=== PATIENT | female | born 1965 | race American Indian/Alaskan Native ===

== ENCOUNTER 2019-04-03 08:00 | Observation (INO) | payer OTHER ==
--- NOTE | 2019-03-28 12:00 | Anesthesia Consultation ---
Anesthesia Consult and Med Hx - Airway Anesthetic Teeth Evaluation: Good ROM Head & Neck: Adequate Mental/Hyoid Distance: Adequate Mallampati Class: Class II Intubation Access Assessment: Good - Pulmonary Exam CTA: Yes - Cardiac Exam Cardiac Exam: RRR - Pre-Operative Health Status ASA Pre-Surgery Classification: ASA2 Proposed Anesthetic Plan: General Nerve Block: PEC Block Bilateral - Pulmonary Hx Smoking: No - Cardiovascular System Hx Hypertension: Yes (2008) Hx Cardia Arrhythmia: Yes (Hx of cardiac arrythmia, EKG normal f/u with cardilogy yearly no medication) - Central Nervous System Hx Psychiatric Problems: No - Other Systems Hx Alcohol Use: No Hx Cancer: Yes - Additional Comments Anesthesia Medical History Comments: Pt with HTN , hx of arrythmia but not issues , f/u with cardiology yearly but not on any medications, ekg shows no arrythmias
[~2019-04-03 08:00] MED LIST: ANCEF IV ONE; BACITRACIN IR ONE; GENTAMICIN IV ONE; LACTATED RINGERS 1,000 ML IV SCH; NEURONTIN PO NR; SUBLIMAZE IV SCH; TRANSDERM-SCOP TD NR; VERSED IV NR
[2019-04-03] MEDS ORDERED: ANCEF ONE ×2 (10:17→19:11)
[2019-04-03] MEDS ORDERED: GENTAMICIN ONE (10:17)
[2019-04-03] MEDS ORDERED: BACITRACIN ONE (10:17)
[2019-04-03] MEDS ORDERED: NACL P/F VIAL (10 ML) 20 ML ONE (10:18)
[2019-04-03] MEDS ORDERED: METHYLENE BLUE ONE ×2 (10:19→15:03)
[2019-04-03] MEDS ORDERED: MARCAINE 0.25% INFILTRATI ONE (10:47)
[2019-04-03] MEDS ORDERED: DECADRON ONE ×2 (10:47→12:52)
[2019-04-03] MEDS ORDERED: DILAUDID IV PRN (10:55)
--- NOTE | 2019-04-03 10:55 | Anesthesia Day of Surgery ---
Anesthesia Day of Surgery - Day of Surgery Patient Examined: Yes Patient H&P Reviewed: Yes Patient is NPO: Yes
[2019-04-03] MEDS ORDERED: ANCEF/STERILE WATER 2 GM/20 ML IV NR (11:00)
[2019-04-03] MEDS: VERSED IV NR ×2 (11:13→11:21)
[2019-04-03] MEDS ORDERED: ZEMURON IV ONE (12:20)
[2019-04-03] MEDS ORDERED: DIPRIVAN 10 MG/ML IV ONE (12:20)
[2019-04-03] MEDS ORDERED: ZOFRAN ONE (12:20)
[2019-04-03] MEDS ORDERED: SUBLIMAZE ONE ×3 (12:20→17:26)
[2019-04-03] MEDS ORDERED: QUELICIN ONE (12:20)
[2019-04-03] MEDS ORDERED: XYLOCAINE MPF 2% ONE (12:20)
[2019-04-03] MEDS ORDERED: NACL P/F VIAL (10 ML) INFILTRATI ONE (13:12)
[2019-04-03] MEDS ORDERED: METHYLENE BLUE IRRIGATION ONE (13:12)
[2019-04-03] MEDS ORDERED: WATER FOR IRRIG STERILE IR ONE (14:12)
[2019-04-03] MEDS ORDERED: NACL 0.9% IR ONE (14:26)
[2019-04-03] MEDS ORDERED: REGLAN PO PRN (18:28)
[2019-04-03] MEDS ORDERED: TYLENOL PO PRN (18:28)
[2019-04-03] MEDS ORDERED: DILAUDID PO PRN (18:28)
[2019-04-03] MEDS ORDERED: PERCOCET 5/325 PO PRN (18:28)
[2019-04-03] MEDS ORDERED: SODIUM CHLORIDE FLUSH SYRINGE 10 ML IV PRN (18:28)
[2019-04-03] MEDS ORDERED: BENADRYL PO PRN (18:28)
[2019-04-03] MEDS ORDERED: ZOFRAN IV PRN (18:28)
--- NOTE | 2019-04-03 18:28 | Short Stay Summary ---
Short Stay Documentation Date of service: 04/03/19 - History H&P: obtained from office - Allergies and Medications Current Medications: Allergies No Known Allergies Allergy (Verified 03/27/19 19:13) Home Medications Medication Instructions Recorded Confirmed Last Taken Type Triamter/Hctz 37.5-25 mg 1 tab PO QDAY 03/27/19 04/03/19 04/02/19 21:00 History [Maxzide-25] oxyCODONE [roxiCODONE] 5 mg PO Q6HR PRN 03/27/19 03/27/19 Unknown History Active Medications Cefazolin Sodium (Ancef/Sterile Water 2 Gm/20 Ml) 2 gm IV PREOP NR Stop: 04/03/19 20:00 Celecoxib (Celebrex) 200 mg PO PREOP NR Stop: 04/03/19 23:00 Last Admin: 04/03/19 10:31 Dose: 200 mg Documented by: Fentanyl (Sublimaze) 100 mcg IV ONCE FABY Stop: 04/03/19 23:00 Last Admin: 04/03/19 11:13 Dose: 100 mcg Documented by: Gabapentin (Neurontin) 300 mg PO PREOP NR Stop: 04/03/19 23:00 Last Admin: 04/03/19 10:32 Dose: 300 mg Documented by: Hydromorphone HCl (Dilaudid) 0.5 mg IV Q10MIN PRN PRN Reason: Pain , Severe (7-10) Stop: 04/03/19 20:00 Lactated Ringer's (Lactated Ringers) 1,000 mls @ 75 mls/hr IV DIRECT FABY Last Admin: 04/03/19 10:32 Dose: 75 mls/hr Documented by: Midazolam HCl (Versed) 2 mg IV PREOP NR Stop: 04/03/19 23:59 Last Admin: 04/03/19 11:21 Dose: 2 mg Documented by: Scopolamine (Transderm-Scop) 1 each TD PREOP NR Stop: 04/03/19 23:00 Last Admin: 04/03/19 10:32 Dose: 1 each Documented by: - Brief post op/procedure progress note Date of procedure: 04/03/19 Pre-op diagnosis: Left breast cancer of the lower inner quadrant Post-op diagnosis: same Procedure: Right total mastectomy, left total mastectomy with SLNB followed by completion left ALND Anesthesia: GETA Findings: Right total mastectomy; left total mastectomy with clip present; SLNB positive for malignancy and proceeded with ALND Surgeon: OSMAR MATOS Estimated blood loss: other (250) Pathology: list (bilateral mastectomy; left SLND, left ALND) Specimen disposition: to lab Condition: stable - Disposition Condition at discharge: Good Disposition: DC/TX-02 SHRT-TRM GEN HOSP IP Short Stay Discharge Plan Activity: other (no heavy lifting) Diet: regular Wound: keep clean and dry Follow up with: CATHERINE WALDRON MD [Primary Care Provider] - 7 Days OSMAR MATOS MD [Staff Physician] - 7 Days
[2019-04-03] MEDS ORDERED: MORPHINE IV PRN (18:30)
[2019-04-03] MEDS ORDERED: LACTATED RINGERS 1,000 ML IV SCH (19:00)
[2019-04-03] MEDS ORDERED: DILAUDID ONE (19:20)
[2019-04-03] MEDS: COLACE PO SCH (22:41)
--- NOTE | 2019-04-03 23:30 | Operative Report ---
Operative Report Operative Report: Operative Report: Date of Service: April 03, 2019 Preoperative diagnosis: Left breast cancer of the lower inner quadrant Postoperative diagnosis: Same Procedure: Left total mastectomy with sentinel lymph node biopsy followed by ALND and right total mastectomy and removal of bilateral implants Surgeon: Lian Perez M.D. Anesthesia: Gen. Findings: Left breast clip present within left total mastectomy. 1 sentinel lymph node identified and positive for malignancy on frozen section of pathology and proceeded with left axillary lymph node dissection Complications: None Drains: 2 15/19 [place] WES drains bilaterally-placed by plastic surgery Estimated blood loss: 200 cc Disposition: PACU in good condition Indications for operative procedure: This is a 53-year-old lady with stage II left breast cancer of the lower inner quadrant, ER positive. She completed neoadjuvant chemotherapy and recommendations were to proceed with a left mastectomy given location of tumor with SLN staging. She wished to proceed with a prophylactic right mastectomy and removal of bilateral implants and placement of bilateral tissue expanders in conjunction with plastic surgery. She wished to proceed with the above procedure. Procedure in detail: The patient was taken to the operating room and was placed supine. Gen. anesthesia was administered. The left nipple was injected with radioisotope and 1 cc of methylene blue. Bilateral chest and axillas were prepped and draped in the normal sterile operative fashion. Timeout was performed. Typical mastectomy incision markings were made. Attention was taken toward the right breast first. First began raising of the superior flap to the level of the clavicle superiorly and posteriorly to the pectoralis muscle. Followed by raising of the medial flap to the level of the sternum and posteriorly to the pectoralis muscle. Followed by raising of the lateral flap to the level of the latissimus dorsi muscle and taken down posteriorly. Followed by raising of the inferior flap to the level of the inframammary fold taken posterior to the pectoralis muscle. The mastectomy/breast was removed from the pectoralis muscle without incident. Upon breast removal from the pectoralis muslce, the submuscular implant was encountered and was removed. Significant scar tissue was noted throughout the mastectomy from her prior surgeries. The specimen was appropriately marked and sent to pathology. Hemostasis was obtained. The port was noted and unharmed. Attention was taken towards the left breast. A gamma probe was inserted into the axilla to identify the sentinel lymph node location with uptake noted. A skin incision was made with a 10 blade knife and dissection taken down to the subcutaneous tissues. First began raising of the superior flap to the level of the clavicle superiorly and posteriorly to the pectoralis muscle. Followed by raising of the medial flap to the level of the sternum and posteriorly to the pectoralis muscle. Followed by raising of the lateral flap to the level of the latissimus dorsi muscle and taken down posteriorly. The gamma probe was inserted into the axilla, the axillary fascia was opened and 1 sentinel lymph node was identified with the gamma probe that was dissected free and sent to pathology. Patient with positive axillary lymph node prior to chemotherapy. All remaining counts were less than 10% of the highest SLN. Lymph node was sent to pathology with findings positive for malignancy noted on frozen section. Then proceeded with raising of the inferior flap to the level of the inframammary fold taken posterior to the pectoralis muscle. The mastectomy/breast was removed from the pectoralis muscle without incident. The specimen was appropriately marked and sent to radiology with findings of breast clip present and sent to pathology. Upon breast removal from the pectoralis muslce, the submuscular implant was encountered and was removed. Significant scar tissue was noted throughout the mastectomy from her prior surgeries. Significant scarring was noted around the NAC bilaerally. From patient's prior reduction mammoplasty and augmentation, less amount of breast tissue was noted along the inframammary fold bilaterally. Attention was then taken towards the left axilla. First began opening of the axillary fascia further. The lattismus dorsi muscle was identified and followed superiorly. Then proceeded with identification of the axillary vein followed by identification of the thoracodorsal bundle and long thoracic nerve. Axillary lymph nodes were then removed from the above boundaries with the aid of the bovie cautery in a sweeping-like motion and then sent to pathology. Axillary lymph nodes from level I and II were removed. Both nerves were identified and unharmed. Hemostasis was noted. The chest wall was irrigated and suctioned. Hemostasis was obtained. Plastic surgery then proceeded with placement of bilateral tissue expanders.
--- NOTE | 2019-04-04 07:39 | Progress Note ---
Assessment and Plan This is a 53 year old lady with left breast cancer, IDCA c T2N1M0 ER positive. POD#1 left MRM, right total mastectomy and bilateral implant removal and placement of bilateral tissue expanders. 1. No acute events overnight. 2. Pain in good control. 3. Bilateral chest incisions healing well, no hematoma, PICCO dressing intact. 4. OOB to hallway. 5. WES drain education. 6. D/D planning for today. Subjective Date of service: 04/04/19 Principal diagnosis: Left breast cancer of the lower inner quadrant Interval history: POD#1 right total mastectomy, left MRM and bilateral implant removal and placement of bilateral tissue expanders. Objective - Constitutional Vitals: Vital Signs - 12hr 04/03/19 04/03/19 04/03/19 19:45 20:00 20:15 Temperature 97.5 F L Pulse Rate 91 H 81 81 Respiratory 10 L 12 12 Rate Blood Pressure 132/92 133/98 136/91 Blood Pressure [Right] O2 Sat by Pulse 98 98 98 Oximetry 04/03/19 04/03/19 04/04/19 20:30 23:10 00:20 Temperature 97.8 F 98.0 F Pulse Rate 77 64 Respiratory 20 20 18 Rate Blood Pressure 118/69 Blood Pressure 145/88 [Right] O2 Sat by Pulse 100 99 Oximetry 04/04/19 04/04/19 04:15 05:33 Temperature 98.0 F Pulse Rate 65 Respiratory 18 20 Rate Blood Pressure 112/62 Blood Pressure [Right] O2 Sat by Pulse 97 Oximetry General appearance: Present: no acute distress - EENT Eyes: PERRL, EOM intact ENT: hearing intact, clear oral mucosa, dentition normal Ears: bilateral: normal - Neck Neck: supple, normal ROM - Respiratory Respiratory effort: normal - Breasts Breasts: other (bilateral PICCO dressings intact; no hematoma; WES drains to bulb suction) - Cardiovascular Rhythm: regular Extremities: no ischemia, No edema, normal temperature, normal color, Full ROM - Gastrointestinal General gastrointestinal: Present: soft, non-tender, non-distended Rectal Exam: deferred - Genitourinary Female genitourinary: deferred - Integumentary Integumentary: clear, warm, dry - Musculoskeletal Musculoskeletal: strength equal bilaterally - Neurologic Neurologic: CNII-XII intact, moves all extremities - Psychiatric Psychiatric: appropriate mood/affect, intact judgment & insight, memory intact, cooperative Medications & Allergies - Medications Allergies/Adverse Reactions: Allergies No Known Allergies Allergy (Verified 03/27/19 19:13) Home Medications: Home Medications Medication Instructions Recorded Confirmed Last Taken Type Triamter/Hctz 37.5-25 mg 1 tab PO QDAY 03/27/19 04/03/19 04/02/19 21:00 History [Maxzide-25] oxyCODONE [roxiCODONE] 5 mg PO Q6HR PRN 03/27/19 03/27/19 Unknown History Active Medications: Generic Name Dose Route Start Last Admin Trade Name Freq PRN Reason Stop Dose Admin Acetaminophen 650 mg 04/03/19 18:28 Tylenol PO Q6H PRN Pain MILD(1-3)/Fever >100.5/YORK Diphenhydramine HCl 25 mg 04/03/19 18:28 Benadryl PO Q8H PRN Itching Docusate Sodium 100 mg 04/03/19 22:00 04/03/19 22:41 Colace PO Not Given BID FABY Hydromorphone HCl 2 mg 04/03/19 18:28 Dilaudid PO Q6H PRN Pain , Severe (7-10) Lactated Ringer's 1,000 mls @ 75 mls/hr 04/03/19 06:32 04/03/19 10:32 Lactated Ringers IV 75 mls/hr DIRECT FABY Administration Lactated Ringer's 1,000 mls @ 125 mls/hr 04/03/19 19:00 04/03/19 21:29 Lactated Ringers IV 125 mls/hr DIRECT FABY Administration Metoclopramide HCl 10 mg 04/03/19 18:28 Reglan PO Q6H PRN Nausea And Vomiting Morphine Sulfate 2 mg 04/03/19 18:30 04/03/19 23:10 Morphine IV 2 mg Q4H PRN Administration Pain, Moderate (4-6) Ondansetron HCl 4 mg 04/03/19 18:28 Zofran IV Q8H PRN N/V unrelieved by Reglan Oxycodone/Acetaminophen 1 tab 04/03/19 18:28 04/04/19 05:33 Percocet 5/325 PO 1 tab Q6H PRN Administration Pain, Moderate (4-6) Sodium Chloride 10 ml 04/03/19 18:28 Sodium Chloride Flush Syringe 10 Ml IV PRN PRN LINE FLUSH
--- NOTE | 2019-04-04 09:18 | XRay Report ---
Operative specimen mammogram: A single image demonstrates a large piece of soft tissue that includes a biopsy marker.
[2019-04-04] MEDS: COLACE PO SCH (09:55)
[2019-04-04 10:30] VITALS: BP 124/72
--- NOTE | 2019-04-04 14:06 | Operative Report ---
PREOPERATIVE DIAGNOSIS: left breast cancer POSTOPERATIVE DIAGNOSIS: left breast cancer PROCEDURE: 1. Bilateral breast reconstruction with tissue expanders. 2. Bilateral breast reconstruction using the acellular dermal matrix, FlexHD. 3. Removal of bilateral intact silicone implants. 4. Application of ASHLEE negative pressure wound VAC device to bilateral breasts. SURGEON: Felix Lama MD FREEZER ASSISTANT: None. ANESTHESIA: General. OPERATIVE INDICATIONS: This is a 53-year-old female with left-sided breast cancer, who was undergoing a bilateral mastectomy and desired reconstruction. Her history was noted for multiple breast surgeries including augmentation, mastopexy, breast reduction and currently had a mariscal pattern incision with wide pour scars, very tight breasts and almost close to symmastia as well. We discussed with the patient that we would likely need to remove the implants and then we placed some tissue expanders, re-stretch out the skin in order to place silicone implants again in the future. Risks and benefits of surgery were discussed with the patient, she agreed. OPERATIVE DETAILS: After informed consent obtained, the patient was brought to the operating room and placed supine on the operative table. Preoperative antibiotics and general anesthesia were administered. The patient was prepped and draped in usual sterile fashion. Timeout was called verifying inpatient operation being performed. Dr. Perez began her portion of the operation, which will be dictated separately. I came into the room when she was completing the right-sided mastectomy. I scrubbed in. We removed the intact breast implant, which was in the submuscular plane but very little of it was submuscular, most of it was subglandular and implant was displaced laterally. The capsule was thin and normal and Dr. Perez had to resect a small portion of the anterior capsule with the specimen. I went ahead and decided to leave the implant in the pocket, but I created some additional dissection subpectorally, superiorly and medially to try to push the pocket a little bit more medial. Once that was done, we irrigated copiously and achieved hemostasis. We then prepared our implants. I opened up a [place] Artbttna ultra high profile 535 mL textured implant with serial #[id number] and we placed that into the subpectoral pocket. All the air was removed and 50 mL of methylene blue tinted saline was placed in there. We then took a piece of 11 x 20 cm FlexHD pliable-shaped perforated mesh and secured that to the inframammary fold and then secured it to the pectoralis major muscle to provide total implant coverage. We then placed a 19-Citizen [place] and 15-Citizen [place] round [place] drain. Of note, the patient was very tight to close. Dr. Perez had to remove more skin and anticipate around the nipple areola complex and it was difficult to close her. We explored her together with deeper layer of 2-0 Vicryl sutures to take the tension off the skin closure and then closed with 3-0 Monocryl and then a 3-0 Monocryl V-Loc running subcuticular. We then applied Dermabond and a ASHLEE negative pressure wound VAC device to reinforce the incision postoperatively. When she was done with the left side, I performed the same procedure on the left. She did have performed an axillary dissection on that side, so we paid particular attention to hemostasis. After everything was irrigated again, we created a little bit larger subpectoral pocket and after we removed the intact silicone implant, which had no issues, the capsule had no issues, a small portion was resected anteriorly. Again, we extended the subpectoral pocket and then placed a [place] Artoura ultra high profile 535 mL regulatory consultant into that pocket and sutured in place with the suture tabs. The serial number on it was #[id number] and then we used a piece of FlexHD pliable 16 x 20 cm, cut it to the appropriate size, and used that as our lower sling, securing it to the inframammary fold and the pectoralis major muscle with 2-0 PDS suture. We then placed [id number] and 19-Citizen [place] drains, achieved hemostasis, irrigated out the pocket and closed with 2-0 Vicryl deep and then 3-0 Monocryl in the dermal layer and 3-0 Monocryl running subcuticular barbed suture. We applied Dermabond and ASHLEE negative pressure wound VAC device. We placed the patient in a support binder, awakened from general anesthesia, transferred to PACU in stable condition. ESTIMATED BLOOD LOSS: Less than 50 mL. COMPLICATIONS: None. SPECIMENS: Bilateral intact silicone breast implants. JOB# [id number] ANTONIA/VIVIENNE SIERRA
== END 2019-04-04 10:35 | disposition home or self-care (01) ==
LOC: INTOOBSV 09:52 → 3A 09:52 → EDSTATUS 14:30 → OB 19:49
PROVIDERS: ADMIT Surgery; ATTEND Surgery
DX: C50.312 Malignant neoplasm of lower-inner quadrant of left female breast (principal); F32.9 Major depressive disorder, single episode, unspecified; D64.9 Anemia, unspecified; Z98.890 Other specified postprocedural states
CPT/HCPCS: 19303; 19357; 38525; 38792; 64450; 76098; 78800; 88307; 88331; 88333; 88342; 93005; 93010; 96374; 96375; A9541; C1789; G0378; G0379; J0690; J1100; J1170; J1580; J2250; J2270; J2405; J2704; J3010; J7120; Q4128; Q9968; 88309; 88341; 88368; 96361; J0330

== ENCOUNTER 2021-01-15 10:17 | Day surgery (SDC) | payer OTHER ==
[~2021-01-15 10:17] MED LIST changes: -ANCEF IV ONE; -BACITRACIN IR ONE; -GENTAMICIN IV ONE; +MIDAZOLAM 2 MG/2 ML INJ IV NR; -NEURONTIN PO NR; -SUBLIMAZE IV SCH; -TRANSDERM-SCOP TD NR; -VERSED IV NR; +ceFAZolin/Water 2 GM/20 ML 2 GM/20 ML SYRINGE IV NR
[2021-01-15] MEDS ORDERED: propofoL 200 MG/20 ML VIAL IV ONE ×3 (10:21→11:53)
[2021-01-15] MEDS ORDERED: ceFAZolin/Water 2 GM/20 ML 2 GM/20 ML SYRINGE IV ONE (10:25)
--- NOTE | 2021-01-15 10:46 | Operative Report ---
Operative Report Operative Report: Operative Report: Date of Service: January 15, 2021 Properative diagnosis: Right port with central venous access not indicated, personal history of left breast cancer Postoperative diagnosis: Same Procedure: Right port removal Surgeon: Lian Perez MD Anesthesia: Local MAC Findings: Removal of right port in its entirety Complications: None Drain: None Disposition: PACU in good condition Indications for operative procedure: This is a 55-year-old lady with a personal history of left breast cancer. Patient has completed neoadjuvant chemotherapy and central venous access no longer indicated; status post bilateral mastectomy. Patient wished to proceed with port removal. Procedure in detail: Patient was taken to the operating procedure room. She was laid supine. Local MAC anesthesia was administered. The port was identified of the right chest. The right chest was prepped and draped in the normal sterile operative fashion. The skin was anesthetized with 1% lidocaine mix with quarter percent Marcaine. The prior port incision was opened with a 15 blade knife and taken down to the subcutaneous tissues. The port was encountered. The catheter was encountered and was appropriately dissected free and removed in its entirety-significant scarring present. Then proceed with port removal with dissection of scar tissue around the port-significant scarring present. The port was removed in its entirety without any complications. Hemostasis was obtained. The subcutanoeus tisses were brought together and closed with interrupted 3-0 Vicryl followed by closing of the skin with a running 4-0 Monocryl. She tolerated the procedure very well and was transferred to PACU in good condition.
--- NOTE | 2021-01-15 10:48 | Short Stay Summary ---
Short Stay Documentation Date of service: 01/15/21 - History H&P: obtained from office - Allergies and Medications Current Medications: Allergies egg Adverse Reaction (Verified 01/15/21 09:46) Nausea Home Medications Medication Instructions Recorded Confirmed Last Taken Type Duloxetine HCl [Cymbalta] 30 mg PO DAILY 12/08/20 01/15/21 01/14/21 09:00 History Exemestane [Aromasin] 25 mg PO QDAY 12/08/20 01/15/21 01/14/21 09:00 History Triamterene/Hydrochlorothiazid 1 each PO DAILY 12/08/20 01/15/21 01/14/21 09:00 History [Dyazide 37.5-25 Capsule] traZODone [Desyrel] 50 mg PO QHS 12/08/20 01/15/21 01/13/21 20:00 History Active Medications Lactated Ringer's (Lactated Ringers) 1,000 mls @ 100 mls/hr IV DIRECT FABY Stop: 01/15/21 23:59 Midazolam HCl (Midazolam 2 Mg/2 Ml Inj) 2 mg IV PREOP NR Stop: 01/15/21 23:00 - Brief post op/procedure progress note Date of procedure: 01/15/21 Pre-op diagnosis: Central venous access not indicated, personal history of left breast cancer Post-op diagnosis: same Procedure: Right port removal Anesthesia: MAC Findings: Right port removal in its entirety Surgeon: OSMAR MATOS Estimated blood loss: minimal Pathology: list Specimen disposition: to lab Condition: stable - Disposition Condition at discharge: Good Disposition: DC-01 TO HOME OR SELFCARE Short Stay Discharge Plan Activity: other (no heavy lifting) Diet: regular Wound: keep clean and dry (remove dressing in 24 hours; may shower in 48 hours, no baths; apply bacitracin to incision twice daily ) Follow up with: OSMAR MATOS MD [Staff Physician] - 7 Days
[2021-01-15] MEDS ORDERED: LIDOCAINE PF 100 MG/5 ML (CARDIAC SYRINGE) IV ONE (10:51)
[2021-01-15] MEDS ORDERED: BUPIVACAINE/PF (0.25%) 2.5 MG/ML 30 ML VIAL INFILTRATI ONE ×2 (10:52→11:26)
[2021-01-15] MEDS ORDERED: LIDOCAINE (1%) 10 MG/1 ML VIAL 20 ML MDV ONE (10:52)
[2021-01-15] MEDS ORDERED: ceFAZolin/STERILE WATER 2 GM/20 ML SYRINGE IV NR (11:00)
[2021-01-15] MEDS ORDERED: ONDANSETRON 4 MG/2 ML INJ ONE (11:00)
[2021-01-15] MEDS ORDERED: ONDANSETRON 4 MG/2 ML INJ IV PRN (11:05)
[2021-01-15] MEDS ORDERED: HYDROcodone/ACETAMINOPHEN 5-325 MG TAB PO PRN (11:05)
[2021-01-15] MEDS ORDERED: fentaNYL 100 MCG/2 ML INJ IV PRN (11:05)
--- NOTE | 2021-01-15 11:05 | Anesthesia Consultation ---
Anesthesia Consult and Med Hx Date of service: 01/15/21 - Airway Anesthetic Teeth Evaluation: Good ROM Head & Neck: Adequate Mental/Hyoid Distance: Adequate Mallampati Class: Class III Intubation Access Assessment: Possibly Difficult - Pre-Operative Health Status ASA Pre-Surgery Classification: ASA3 Proposed Anesthetic Plan: MAC - Pulmonary Hx Smoking: No Hx Respiratory Symptoms: No Hx Pneumonia: No (COVID+ 2/4 w/ fatigue and loss of taste. No resp symptoms. Now resolved.) - Cardiovascular System Hx Hypertension: Yes Hx Heart Attack/AMI: No Hx Angina: Yes (had chest pain 2 wks ago w/ neg stress test) Hx Percutaneous Transluminal Coronary Angioplasty (PTCA): No - Central Nervous System Hx Neuromuscular Disorder: No (peripheral neuropathy) CVA: No - Endocrine Hx Renal Disease: No Hx Liver Disease: No Hx Insulin Dependent Diabetes: No Hx Non-Insulin Dependent Diabetes: No Hx Thyroid Disease: No - Other Systems Hx Cancer: Yes (hx breast ca) Hx Obesity: Yes (BMI 31)
--- NOTE | 2021-01-15 11:05 | Anesthesia Day of Surgery ---
Anesthesia Day of Surgery - Day of Surgery Patient Examined: Yes Patient H&P Reviewed: Yes Patient is NPO: Yes
[2021-01-15] MEDS ORDERED: LIDOCAINE (1%) 10 MG/1 ML VIAL 20 ML MDV INFILTRATI ONE (11:26)
[2021-01-15] MEDS ORDERED: SODIUM CHLORIDE 0.9% IRR 1,500 ML BOTTLE IR ONE (11:26)
[2021-01-15] MEDS ORDERED: BACITRACIN ZINC OINT 28.4 GM TP ONE ×2 (11:52→11:59)
[2021-01-15] MEDS ORDERED: fentaNYL 100 MCG/2 ML INJ ONE (12:13)
[2021-01-15] MEDS ORDERED: hydrALAZINE 20 MG/1 ML INJ IV PRN (12:49)
--- NOTE | 2021-01-15 13:21 | Post Anesthesia Evaluation ---
- Post Anesthesia Evaluation Patient Participated: Yes Airway Patent: Yes Stable Respiratory Function: Yes Nausea/Vomiting: No Temp > 96.8F: Yes Pain Manageable: Yes Adequeate Hydration: Yes Anesthesia Complications: No
[2021-01-15 13:53] VITALS: BP 143/75
== END 2021-01-15 13:50 | disposition home or self-care (01) ==
LOC: OR 10:17
PROVIDERS: ATTEND Surgery
DX: Z45.2 Encounter for adjustment and management of vascular access device (principal); Z20.822 Contact with and (suspected) exposure to COVID-19; G62.9 Polyneuropathy, unspecified; G43.909 Migraine, unspecified, not intractable, without status migrainosus; I20.8 Other forms of angina pectoris; E78.00 Pure hypercholesterolemia, unspecified; I10 Essential (primary) hypertension; E66.9 Obesity, unspecified; K21.9 Gastro-esophageal reflux disease without esophagitis; Z96.652 Presence of left artificial knee joint; Z85.3 Personal history of malignant neoplasm of breast; Z79.899 Other long term (current) drug therapy; Z87.01 Personal history of pneumonia (recurrent); Z90.710 Acquired absence of both cervix and uterus; Z98.890 Other specified postprocedural states; Z80.42 Family history of malignant neoplasm of prostate; Z68.41 Body mass index [BMI] 40.0-44.9, adult
CPT/HCPCS: 36590; 88300; J0360; J0690; J2001; J2250; J2405; J2704; J3010; J7120; U0003; 88302